=== PATIENT | female | born 1975 | race Caucasian/White ===

== ENCOUNTER 2018-10-31 14:48 | Outpatient (CLI) | payer OTHER ==
--- NOTE | 2018-11-01 12:24 | Ultrasound Report ---
Reason: MALIGNANT NEOPLASM OF TONSIL Procedure Date: 10/31/2018 Accession Number: [id number] / [id number] Procedure: US - Carotid Doppler Complete CPT Code: FULL RESULT: EXAM: BILATERAL CAROTID AND VERTEBRAL ARTERY DUPLEX DOPPLER ULTRASOUND: EXAM DATE: 10/31/2018 04:05 PM CLINICAL HISTORY: Malignant neoplasm of tonsil. COMPARISON: None. TECHNIQUE: Grayscale imaging, color Doppler, and duplex spectral Doppler were used to evaluate the carotid and vertebral arteries bilaterally. Static images were obtained. FINDINGS: No significant plaque is identified in the right or left common or internal carotid arteries. Normal antegrade flow is present in bilateral vertebral arteries. VELOCITIES (cm/sec): Right CCA mid: PSV 101 cm/sec CCA dist: PSV 89 cm/sec ICA prox: PSV 76 cm/sec, EDV 34 cm/sec ICA mid: PSV 71 cm/sec, EDV 30 cm/sec ICA dist: PSV 80 cm/sec, EDV 41 cm/sec ECA: PSV 83 cm/sec Vert: PSV 46 cm/sec ICA/CCA: 0.9 Left CCA mid: PSV 104 cm/sec CCA dist: PSV 96 cm/sec ICA prox: PSV 83 cm/sec, EDV 36 cm/sec ICA mid: PSV 74 cm/sec, EDV 37 cm/sec ICA dist: PSV 79 cm/sec, EDV 42 cm/sec ECA: PSV 107 cm/sec Vert: PSV 51 cm/sec ICA/CCA: 0.7 ICA diameter stenosis: Right: <50% by velocity and <70% by NASCET criteria. Left: <50% by velocity and <70% by NASCET criteria. IMPRESSION: 1. No significant bilateral carotid artery plaquing. 2. In the right carotid artery there are no elevated carotid artery velocities to suggest hemodynamically significant stenosis. 3. In the left carotid artery there are no elevated carotid artery velocities to suggest hemodynamically significant stenosis. 4. Normal antegrade flow is present in bilateral vertebral arteries. General Recommendations: Stenosis =50% ICA - Follow-up ultrasound 6-12 months Stenosis <50% ICA - High Risk Patient with plaque - Follow-up ultrasound 1-2 years Normal Study but High Risk Patient - Follow-up ultrasound 3-5 years Management recommendations and diagnostic criteria are based on current IAC endorsed standards in Carotid Artery Stenosis: Grayscale and Doppler Ultrasound Diagnosis. Validated velocity measurements with angiographic measurements and velocity criteria are extrapolated from diameter data as defined by the Society of Radiologists in Ultrasound Consensus Conference Radiology 2003; 229;340-346. RADIA
== END 2018-10-31 14:49 | disposition home or self-care (01) ==
LOC: DI 14:48
PROVIDERS: ATTEND Internal Medicine
DX: C09.9 Malignant neoplasm of tonsil, unspecified (principal)
CPT/HCPCS: 93880